=== PATIENT | female | born 1945 | race Asian ===

== ENCOUNTER 2018-04-01 02:58 | Emergency (ER) | payer BC ==
[2018-04-01 03:15] VITALS: BP 171/84; PULSE 68; TEMP 98.2; BMI 10.8
[2018-04-01] MEDS ORDERED: FLUORESCEIN NA 1 EA STRIP OD ONE (03:17)
[2018-04-01] MEDS ORDERED: CYCLOPENTOLATE HCL 1% OPHTH SOLN 2 ML BOTTLE OD ONE (03:17)
[2018-04-01] MEDS ORDERED: TETRACAINE 0.5% HCL 0.6ML DROPPER.BOTTLE OD ONE (03:17)
[2018-04-01] MEDS ORDERED: TETRACAINE 0.5% OPHTH SOLN 2 ML BOTTLE ONE (03:30)
[2018-04-01] MEDS ORDERED: FLUORESCEIN NA 1 EA STRIP ONE (03:30)
--- NOTE | 2018-04-01 03:55 | PDOC ---
History of Present Illness - General Stated Complaint: EYE PAIN Time Seen by Provider: 04/01/18 03:11 History Source: Patient Exam Limitations: No Limitations - History of Present Illness Initial Comments: 04/01/18 03:28 Patient is a 72 year old female with h/o right eye retinal detachment with deficits, cataract left eye, HTN, osteopenia c/o left eye irritation since 3: 30 pm yesterday. She went to the grocery store and when she got home has some irritation to the eye progressively worsened now feels like gravel in the eye. She used some unnamed gtts in the eye without relief. Pain is 10/10, burning. (+) tearing PMD: Dr. Arroyo PKX: as above ALL: NKDA GENERAL/CONSTITUTIONAL: [No fever or chills. No weakness. No weight change.] HEAD, EYES, EARS, NOSE AND THROAT: (+) vision loss right eye. No ear pain or discharge. No sore throat.] CARDIOVASCULAR: [No chest pain or shortness of breath.] RESPIRATORY: [No cough, wheezing, or hemoptysis.] GASTROINTESTINAL: [No nausea, vomiting, diarrhea or constipation. No rectal bleeding.] GENITOURINARY: [No dysuria, frequency, or change in urination.] MUSCULOSKELETAL: (+) joint or muscle swelling or pain. No neck or back pain.] SKIN AND BREASTS: [No rash or easy bruising.] NEUROLOGIC: [No headache, vertigo, loss of consciousness, or loss of sensation.] PSYCHIATRIC: [No depression or anxiety.] ENDOCRINE: [No increased thirst. No abnormal weight change.] HEMATOLOGIC/LYMPHATIC: [No anemia, easy bleeding, or history of blood clots.] ALLERGIC/IMMUNOLOGIC: [No hives or skin allergy. No latex allergy.] GENERAL: [The patient is awake, alert, and fully oriented, in no acute distress. ] HEAD: [Normal with no signs of trauma.] EYES: [Pupils equal, round and reactive to light, extraocular movements intact, sclera anicteric, conjunctival erythema, (+) kemosis to the right cornea, (+) abrasion cover lower 1/2 of the cornea. ENT: [Ears normal, nares patent, oropharynx clear without exudates. Moist mucous membranes.] NECK: [Normal range of motion, supple without lymphadenopathy, JVD, or masses.] LUNGS: [Breath sounds equal, clear to auscultation bilaterally. No wheezes, and no crackles.] HEART: [Regular rate and rhythm, normal S1 and S2 without murmur, rub.] ABDOMEN: [Soft, nontender, normoactive bowel sounds. No guarding, no rebound. No masses.] EXTREMITIES: [Normal range of motion, no edema. No clubbing or cyanosis. No cords, erythema, or tenderness.] NEUROLOGICAL: [Cranial nerves II through XII grossly intact. Normal speech, normal gait.] PSYCH: [Normal mood, normal affect.] SKIN: [Warm, Dry, normal turgor, no rashes or lesions noted.] Past History - Past Medical History Allergies/Adverse Reactions: Allergies Allergy/AdvReac Type Severity Reaction Status Date / Time No Known Allergies Allergy Verified 04/01/18 03:14 - Suicide/Smoking/Psychosocial Hx Smoking History: Never smoked Have you smoked in the past 12 months: No Information on smoking cessation initiated: No Hx Alcohol Use: No Drug/Substance Use Hx: No *Physical Exam - Vital Signs Last Vital Signs Temp Pulse Resp BP Pulse Ox 98.2 F 68 18 171/84 H 100 04/01/18 03:09 04/01/18 03:09 04/01/18 03:09 04/01/18 03:09 04/01/18 03:09 Moderate Sedation - Procedure Monitoring Vital Signs: Procedure Monitoring Vital Signs Temperature 98.2 F 04/01/18 03:09 Pulse Rate 68 04/01/18 03:09 Respiratory Rate 18 04/01/18 03:09 Blood Pressure 171/84 H 04/01/18 03:09 O2 Sat by Pulse Oximetry (%) 100 04/01/18 03:09 Medical Decision Making - Medical Decision Making 04/01/18 03:28 Patient is a 72 year old female with h/o right eye retinal detachment with deficits, cataract left eye, HTN, osteopenia c/o left year irritation since 3: 30 pm yesterday. States feels like gravel in the eye. She went to the grocery store and when she got home has some irritation to the eye. She used some unnamed gtts in the eye without relief. States the eyes has progressively worsened. r/o FB vs cornea abrasion. tetracaine, cycloplegic, gtt Wood lamp procedure tobradex I discussed the physical exam findings, ancillary test results and final diagnoses with the patient. I answered all of the patient's questions. The patient was satisfied with the care received and felt comfortable with the discharge plan and treatment plan. The Patient agrees to follow up with the primary care physician within 24-72 hours. *DC/Admit/Observation/Transfer Diagnosis at time of Disposition: Corneal abrasion Qualifiers: Encounter type: initial encounter Laterality: right Qualified Code(s): S05.01XA - Injury of conjunctiva and corneal abrasion without foreign body, right eye, initial encounter - Discharge Dispostion Disposition: HOME Condition at time of disposition: Stable - Referrals Referrals: Apollo Arroyo MD [Primary Care Provider] - - Patient Instructions Printed Discharge Instructions: DI for Corneal Abrasion Additional Instructions: Your Discharge Instructions: You must call primary care physician within 24 hours to arrange follow-up. Return to the Emergency Department with any new, persistent or worsening symptoms, for fever, chills, SOB, dizziness or any other concerning changes that may occur. Follow-up with ophthalmology in 1 to 2 days. - Post Discharge Activity
[2018-04-01] MEDS ORDERED: TOBRA 0.3%/DEXAMETH 0.1% OPHTHALMIC SUSP 2.5 ML BTL OD ONE (03:59)
== END 2018-04-01 05:01 | disposition home or self-care (01) ==
LOC: JER 02:58
DX: S05.02XA Injury of conjunctiva and corneal abrasion without foreign body, left eye, initial encounter (principal); H54.7 Unspecified visual loss; H26.9 Unspecified cataract; I10 Essential (primary) hypertension; M85.80 Other specified disorders of bone density and structure, unspecified site
CPT/HCPCS: 99281-25